=== PATIENT | female | born 1965 | race African-American/Black ===

== ENCOUNTER 2018-06-14 02:24 | Emergency (ER) | payer MEDICAID ==
[~2018-06-14] VITALS: Ht 167.6 cm; Wt 77.0 kg
[2018-06-14] MEDS ORDERED: LORAZEPAM 2MG/ML CPJ IV ONE (03:30)
[2018-06-14 04:19] LABS: BASOPHILS % 0.8 % (0.0-2.0); CHLORIDE 102 mEq/L (98-107); EOSINOPHILS % 2.6 % (0.0-5.0); HEMATOCRIT. 36.4 % (36.0-48.0); HEMOGLOBIN. 11.9 g/dL (12.0-16.0); LYMPHOCYTES % 47.9 % (20.0-50.0); MEAN CORPUSCULAR HEMOGLOBIN 25.3 pg (28.0-32.0); MEAN CORPUSCULAR VOLUME 77.1 fL (81.0-99.0); MEAN PLATELET VOLUME 9.8 fl (7.4-10.4); MONOCYTES % 10.6 % (2.0-8.0); NEUTROPHILS % 38.1 % (40.0-76.0); PLATELET 141 x1000/uL (130-400); RED BLOOD CELL COUNT 4.72 mill/uL (4.2-5.4); RED CELL DISTRIBUTION WIDTH 15.4 % (11.6-14.6)
[2018-06-14 04:22] LABS: ETHANOL BLOOD < 10 mg/dL
[2018-06-14 04:30] LABS: BETA HYDROXYBUTYRATE 0.4 mMol/L (0.0-0.3)
[2018-06-14 04:46] LABS: INR 1.1; PARTIAL THROMBOPLASTIN TIME 22.1 sec (23.4-31.0); PROTHROMBIN TIME 11.4 sec (9.4-11.6)
[2018-06-14 06:48] LABS: *AMPHETAMINES SCREEN URINE NEGATIVE (NEGATIVE); *BARBITURATES SCREEN URINE NEGATIVE (NEGATIVE)
[2018-06-14 06:49] LABS: *BENZODIAZEPINES SCREEN URINE NEGATIVE (NEGATIVE); METHADONE URINE SCREEN NEGATIVE (NEGATIVE); OPIATES URINE SCREEN NEGATIVE (NEGATIVE)
[2018-06-14 06:50] LABS: *COCAINE SCREEN URINE PRESUMTIVE POSITIVE (NEGATIVE); CANNABINOID URINE SCREEN NEGATIVE (NEGATIVE); PHENCYCLIDINE URINE SCREEN NEGATIVE (NEGATIVE)
[2018-06-14 08:29] VITALS: BP 114/83
== END 2018-06-14 08:34 | disposition home or self-care (01) ==
LOC: ER 02:24 → CANBEDREQ 06:55 → ER 08:34
DX: R07.89 Other chest pain (principal); J44.9 Chronic obstructive pulmonary disease, unspecified; F31.9 Bipolar disorder, unspecified; I10 Essential (primary) hypertension; E11.9 Type 2 diabetes mellitus without complications; F17.200 Nicotine dependence, unspecified, uncomplicated; F14.10 Cocaine abuse, uncomplicated
CPT/HCPCS: 36415; 71045; 80053; 80305; 82010; 83880; 84484; 85025; 85610; 85730; 93005; 99285; G0482; Z7610

== ENCOUNTER 2018-06-14 08:58 | Emergency (ER) | payer MEDICAID, OTHER ==
[~2018-06-14] VITALS: Ht 157.5 cm; Wt 86.0 kg
[2018-06-14 09:08] VITALS: BP 110/60
== END 2018-06-14 09:35 | disposition left against medical advice (07) ==
LOC: ER 08:58
DX: R07.89 Other chest pain (principal); Z53.21 Procedure and treatment not carried out due to patient leaving prior to being seen by health care provider
CPT/HCPCS: 93005; Z7610

== ENCOUNTER 2018-07-12 01:17 | Emergency (ER) | payer MEDICAID, OTHER ==
[~2018-07-12] VITALS: Ht 157.5 cm; Wt 86.0 kg
[~2018-07-12 01:17] MED LIST: ALBU18HF2 IH; BECL10.62 IH; GLIP5TAB12 PO; INSU100I13 SQ; INSU100I24 SQ; METF10004 PO; QUET100T PO
[2018-07-12] MEDS ORDERED: ALBUTEROL (0.083%) 2.5MG/3ML NEB HHN STA (01:52)
[2018-07-12] MEDS ORDERED: METHYLPREDNISOLONE SOD SUCC 125 MG/2 ML VIAL IV STA (01:52)
[2018-07-12] MEDS ORDERED: IPRATROPIUM BROMIDE (0.02%) 0.5MG/2.5ML NEB HHN STA (01:52)
[2018-07-12] MEDS ORDERED: MORPHINE SULFATE 4 MG/ML CPJ (NOT FOR IM USE) IV STA (01:52)
[2018-07-12] MEDS ORDERED: ONDANSETRON HCL 4MG/2ML INJ IV STA (01:52)
[2018-07-12] MEDS ORDERED: GUAIFENESIN/CODEINE 200-20MG/10ML UDC PO ONE (02:00)
[2018-07-12 02:35] LABS: BASOPHILS % 1.1 % (0.0-2.0); EOSINOPHILS % 4.1 % (0.0-5.0); HEMATOCRIT. 41.1 % (36.0-48.0); HEMOGLOBIN. 13.9 g/dL (12.0-16.0); LYMPHOCYTES % 49.4 % (20.0-50.0); MEAN CORPUSCULAR HEMOGLOBIN 25.6 pg (28.0-32.0); MEAN CORPUSCULAR VOLUME 75.7 fL (81.0-99.0); MEAN PLATELET VOLUME 9.3 fl (7.4-10.4); MONOCYTES % 8.4 % (2.0-8.0); PLATELET 217 x1000/uL (130-400); RED BLOOD CELL COUNT 5.43 mill/uL (4.2-5.4); RED CELL DISTRIBUTION WIDTH 15.7 % (11.6-14.6)
[2018-07-12 02:42] LABS: CHLORIDE 97 mEq/L (98-107)
[2018-07-12 06:31] VITALS: BP 91/70
== END 2018-07-12 06:41 | disposition home or self-care (01) ==
LOC: ER 01:17
DX: R07.89 Other chest pain (principal); R06.02 Shortness of breath; R05 Cough; J44.9 Chronic obstructive pulmonary disease, unspecified; E11.9 Type 2 diabetes mellitus without complications; I50.9 Heart failure, unspecified; Z87.891 Personal history of nicotine dependence; Z79.4 Long term (current) use of insulin; Z79.899 Other long term (current) drug therapy
CPT/HCPCS: 36415; 71045; 80053; 83880; 84484; 85025; 93005; 94640; 96374; 96375; 99285; J2270; J2405; J2930; J7611; Z7610

== ENCOUNTER 2018-08-29 22:55 | Inpatient (IN) | payer MEDICAID ==
[~2018-08-29] VITALS: Ht 157.5 cm; Wt 97.1 kg
[~2018-08-29 22:55] MED LIST changes: +METF-416 PO; -METF10004 PO
[2018-08-29] MEDS ORDERED: METHYLPREDNISOLONE SOD SUCC 125 MG/2 ML VIAL IV STA (23:43)
[2018-08-29] MEDS ORDERED: SODIUM CHLORIDE 0.9% 1,000 ML IV ONE (23:43)
[2018-08-29] MEDS ORDERED: IPRATROPIUM BROMIDE (0.02%) 0.5MG/2.5ML NEB HHN STA (23:43)
[2018-08-29] MEDS ORDERED: ALBUTEROL (0.083%) 2.5MG/3ML NEB HHN STA (23:43)
[2018-08-29] MEDS ORDERED: ASPIRIN 325MG TABLET PO ONE (23:45)
[2018-08-30] MEDS ORDERED: ALBUTEROL (0.5%) 2.5MG/0.5ML NEB HHN ONE (00:03)
[2018-08-30] MEDS ORDERED: IPRATROPIUM/ALBUTEROL 0.5-3(2.5)MG/3ML NEB ONE (00:04)
[2018-08-30 00:39] LABS: CHLORIDE 97 mEq/L (98-107)
[2018-08-30] MEDS ORDERED: MORPHINE SULFATE 4 MG/ML CPJ (NOT FOR IM USE) IV STA (00:41)
[2018-08-30] MEDS ORDERED: ONDANSETRON HCL 4MG/2ML INJ IV STA (00:41)
[2018-08-30 00:45] LABS: HCG SCREEN NEGATIVE
[2018-08-30] MEDS ORDERED: SODIUM CHLORIDE 0.9% 1,000 ML IV ONE (00:53)
[2018-08-30 00:57] LABS: BASOPHILS % 1.1 % (0.0-2.0); EOSINOPHILS % 3.3 % (0.0-5.0); HEMOGLOBIN. 13.7 g/dL (12.0-16.0); LYMPHOCYTES % 52.1 % (20.0-50.0); MEAN CORPUSCULAR HEMOGLOBIN 25.1 pg (28.0-32.0); MEAN CORPUSCULAR VOLUME 76.7 fL (81.0-99.0); MEAN PLATELET VOLUME 9.3 fl (7.4-10.4); MONOCYTES % 7.7 % (2.0-8.0); NEUTROPHILS % 35.8 % (40.0-76.0); PLATELET 220 x1000/uL (130-400); RED BLOOD CELL COUNT 5.47 mill/uL (4.2-5.4); RED CELL DISTRIBUTION WIDTH 16.2 % (11.6-14.6)
[2018-08-30] MEDS ORDERED: INSULIN REGULAR (HUMULIN R) 300UNITS/3ML SUBCUT ONE ×2 (01:00→05:30)
[2018-08-30 01:16] LABS: INR 1.1; PROTHROMBIN TIME 10.9 sec (9.1-11.1)
[2018-08-30 01:38] LABS: BG BASE EXCESS 2.6 mmol/L (-2.0-2.0); BG CARBOXYHEMOGLOBIN 4.7 % (0.5-1.5); BG DEOXYHEMOGLOBIN 6.2 % (0.0-5.0); BG FRACTION INSPIRED OXYGEN 21; BG HCO3 ACT 27.7 mmol/L (22.0-26.0); BG METHEMOGLOBIN 0.2 % (0.0-1.5); BG OXYGEN SATURATION 93.5 % (92.0-98.5); BG OXYHEMOGLOBIN 88.9 % (94.0-97.0); BG PCO2 44.6 mmHg (35.0-45.0); BG PH 7.411 (7.350-7.450); BG PO2 66.7 mmHg (75.0-100.0); BG SAMPLE SITE RIGHT RADIAL; BG TOTAL HEMOGLOBIN 13.5 g/dL (12.0-18.0); BG VENT MODE ROOM AIR
[2018-08-30 01:59] LABS: *AMPHETAMINES SCREEN URINE NEGATIVE (NEGATIVE); *BARBITURATES SCREEN URINE NEGATIVE (NEGATIVE); *BENZODIAZEPINES SCREEN URINE NEGATIVE (NEGATIVE); *COCAINE SCREEN URINE PRESUMTIVE POSITIVE (NEGATIVE); CANNABINOID URINE SCREEN NEGATIVE (NEGATIVE); METHADONE URINE SCREEN NEGATIVE (NEGATIVE); OPIATES URINE SCREEN NEGATIVE (NEGATIVE); PHENCYCLIDINE URINE SCREEN NEGATIVE (NEGATIVE)
[2018-08-30] MEDS ORDERED: MAGNESIUM/ALUMINUM HYDROXIDE/SIMETHICONE 30ML UDC PO PRN (11:15)
[2018-08-30] MEDS ORDERED: ACETAMINOPHEN 650MG/20.3ML UDC GT PRN (11:15)
[2018-08-30] MEDS ORDERED: CLONIDINE 0.1MG TABLET PO PRN (11:15)
[2018-08-30] MEDS ORDERED: DOCUSATE SODIUM 100MG CAPSULE PO PRN (11:15)
[2018-08-30] MEDS ORDERED: ACETAMINOPHEN 650MG SUPP PR PRN (11:15)
[2018-08-30] MEDS ORDERED: NA PHOS,M-B/NA PHOS,DI-BA ENEMA 118ML PR PRN (11:15)
[2018-08-30] MEDS ORDERED: GUAIFENESIN 200MG/10ML SUGAR FREE UDC PO PRN (11:15)
[2018-08-30] MEDS ORDERED: HYDROCODONE/ACETAMINOPHEN 5/325MG TABLET PO PRN (11:15)
[2018-08-30] MEDS ORDERED: ONDANSETRON HCL 4MG/2ML INJ IV PRN (11:15)
[2018-08-30] MEDS ORDERED: IPRATROPIUM/ALBUTEROL 0.5-3(2.5)MG/3ML NEB INH PRN (11:15)
[2018-08-30] MEDS ORDERED: ACETAMINOPHEN 325MG TABLET PO PRN (11:15)
[2018-08-30] MEDS: HYDROCODONE/ACETAMINOPHEN 10/325MG TABLET PO PRN (12:19)
[2018-08-30] MEDS ORDERED: ALBUTEROL (0.083%) 2.5MG/3ML NEB HHN PRN (12:45)
[2018-08-30] MEDS ORDERED: DEXTROSE 50% WATER 50ML SYRINGE IV PRN (12:45)
[2018-08-30] MEDS ORDERED: BECLOMETHASONE DIPROPIONATE 10.6 GM IH SCH (12:45)
[2018-08-30] MEDS: BLOOD SUGAR DIAGNOSTIC STRIP TEST SCH ×3 (13:00→21:00)
[2018-08-30] MEDS ORDERED: INSULIN REGULAR (HUMULIN R) 300UNITS/3ML SUBCUT SCH (13:00)
[2018-08-30] MEDS: SODIUM CHLORIDE 0.9% INJ 3ML FLUSH IVF SCH ×2 (14:00→22:19)
[2018-08-30 14:04] VITALS: BP 125/76
[2018-08-30] MEDS ORDERED: LIDOCAINE HCL/PF 1% 2ML VIAL ONE (15:02)
[2018-08-30 16:00] VITALS: BP_SYST 112; BP_SYST 135; BP_DIAS 64; BP_DIAS 75
[2018-08-30] MEDS ORDERED: CEFTRIAXONE 1 G PREMIX 50 ML IV NR ×2 (16:00→20:00)
[2018-08-30] MEDS ORDERED: AZITHROMYCIN 500 MG in DEXT 5% WATER 250 ML IV NR (17:00)
[2018-08-30] MEDS: GLIPIZIDE 5MG TABLET PO SCH (17:39)
[2018-08-30] MEDS: METFORMIN HCL 500MG TABLET PO SCH (17:40)
[2018-08-30] MEDS: ENOXAPARIN 30MG/0.3ML SYR SUBCUT SCH (17:40)
[2018-08-30] MEDS: METHYLPREDNISOLONE SOD SUCC 40 MG/ML VIAL IV SCH (17:45)
[2018-08-30] MEDS ORDERED: ALBUTEROL (0.083%) 2.5MG/3ML NEB HHN SCH (18:00)
[2018-08-30] MEDS: INSULIN LISPRO 100 UNITS/ML SUBCUT SCH ×2 (18:29→21:00)
[2018-08-30 20:00] VITALS: BP 121/60
[2018-08-30 20:10] LABS: CREATINE KINASE 53 IU/L (26-192); CREATINE KINASE MB FRACTION < 1.0 ng/mL (0.5-3.6); HDL CHOLESTEROL 69 mg/dL (40-59); LDL CHOLESTEROL 128 mg/dL (5-100); T4 FREE 0.93 ng/dL (0.76-1.46)
[2018-08-30] MEDS: QUETIAPINE FUMARATE 100MG TABLET PO SCH (22:16)
[2018-08-31] VITALS: BP 116/59
[2018-08-31] MEDS: IPRATROPIUM/ALBUTEROL 0.5-3(2.5)MG/3ML NEB INH SCH ×3 (01:48→20:48)
[2018-08-31 04:00] VITALS: BP 126/60
[2018-08-31] MEDS: ENOXAPARIN 30MG/0.3ML SYR SUBCUT SCH ×2 (04:16→15:11)
[2018-08-31] MEDS: METHYLPREDNISOLONE SOD SUCC 40 MG/ML VIAL IV SCH ×2 (04:16→15:00)
[2018-08-31] MEDS: METFORMIN HCL 500MG TABLET PO SCH ×2 (06:26→17:43)
[2018-08-31] MEDS: BLOOD SUGAR DIAGNOSTIC STRIP TEST SCH ×4 (06:27→21:28)
[2018-08-31] MEDS: SODIUM CHLORIDE 0.9% INJ 3ML FLUSH IVF SCH ×3 (06:27→21:30)
[2018-08-31 06:41] LABS: BASOPHILS % 0.6 % (0.0-2.0); EOSINOPHILS % 1.4 % (0.0-5.0); HEMATOCRIT. 37.4 % (36.0-48.0); HEMOGLOBIN. 12.4 g/dL (12.0-16.0); LYMPHOCYTES % 41.4 % (20.0-50.0); MEAN CORPUSCULAR HEMOGLOBIN 25.4 pg (28.0-32.0); MEAN CORPUSCULAR VOLUME 76.8 fL (81.0-99.0); MONOCYTES % 4.3 % (2.0-8.0); NEUTROPHILS % 52.3 % (40.0-76.0); PLATELET 183 x1000/uL (130-400); RED BLOOD CELL COUNT 4.87 mill/uL (4.2-5.4); RED CELL DISTRIBUTION WIDTH 16.3 % (11.6-14.6)
[2018-08-31 06:49] LABS: CHLORIDE 104 mEq/L (98-107)
[2018-08-31 06:57] LABS: CREATINE KINASE 47 IU/L (26-192); CREATINE KINASE MB FRACTION 1.2 ng/mL (0.5-3.6); HDL CHOLESTEROL 67 mg/dL (40-59); LDL CHOLESTEROL 128 mg/dL (5-100)
[2018-08-31 08:06] VITALS: BP 107/58
[2018-08-31] MEDS: GLIPIZIDE 5MG TABLET PO SCH (08:24)
[2018-08-31] MEDS: INSULIN LISPRO 100 UNITS/ML SUBCUT SCH ×4 (08:26→21:40)
[2018-08-31] MEDS: NICOTINE 14MG PATCH TD SCH (10:07)
[2018-08-31 12:24] VITALS: BP 98/66
[2018-08-31] MEDS: HYDROCODONE/ACETAMINOPHEN 10/325MG TABLET PO PRN (13:51)
[2018-08-31 14:23] LABS: CLARITY URINE CLEAR (CLEAR); COLOR URINE YELLOW (YELLOW); KETONES URINE NEGATIVE (NEGATIVE); LEUKOCYTE ESTERASE URINE NEGATIVE (NEGATIVE); NITRITE URINE NEGATIVE (NEGATIVE); OCCULT BLOOD URINE NEGATIVE (NEGATIVE); PH URINE 5.5 (4.5-8.0); PROTEIN URINE NEGATIVE (NEGATIVE); SPECIFIC GRAVITY URINE 1.025 (1.005-1.030)
[2018-08-31] MEDS: BUDESONIDE 0.5MG/2ML NEB HHN SCH (14:25)
[2018-08-31 14:41] LABS: *BENZODIAZEPINES SCREEN URINE NEGATIVE (NEGATIVE); *COCAINE SCREEN URINE PRESUMTIVE POSITIVE (NEGATIVE); METHADONE URINE SCREEN NEGATIVE (NEGATIVE); OPIATES URINE SCREEN NEGATIVE (NEGATIVE)
[2018-08-31 14:43] LABS: *AMPHETAMINES SCREEN URINE NEGATIVE (NEGATIVE); *BARBITURATES SCREEN URINE NEGATIVE (NEGATIVE); CANNABINOID URINE SCREEN NEGATIVE (NEGATIVE); PHENCYCLIDINE URINE SCREEN NEGATIVE (NEGATIVE)
[2018-08-31] MEDS ORDERED: INFLUENZA VIRUS VACCINE(AFLURIA) 0.5ML SYR IM ONE (15:15)
[2018-08-31 15:24] VITALS: BP 108/61
[2018-08-31 20:00] VITALS: BP 118/72
[2018-08-31] MEDS ORDERED: CEFTRIAXONE 1 G PREMIX 50 ML IV SCH (20:00)
[2018-08-31] MEDS: QUETIAPINE FUMARATE 100MG TABLET PO SCH (21:28)
[2018-09-01] VITALS: BP 97/54
[2018-09-01] MEDS: ENOXAPARIN 30MG/0.3ML SYR SUBCUT SCH ×2 (01:56→15:00)
[2018-09-01 03:59] VITALS: BP 99/54
[2018-09-01] MEDS: SODIUM CHLORIDE 0.9% INJ 3ML FLUSH IVF SCH ×2 (06:00→14:00)
[2018-09-01] MEDS: METFORMIN HCL 500MG TABLET PO SCH (07:02)
[2018-09-01] MEDS: BLOOD SUGAR DIAGNOSTIC STRIP TEST SCH ×2 (07:03→11:48)
[2018-09-01] MEDS: HYDROCODONE/ACETAMINOPHEN 10/325MG TABLET PO PRN (07:14)
[2018-09-01] MEDS: IPRATROPIUM/ALBUTEROL 0.5-3(2.5)MG/3ML NEB INH SCH ×2 (07:59→14:00)
[2018-09-01] MEDS: BUDESONIDE 0.5MG/2ML NEB HHN SCH (07:59)
[2018-09-01 08:00] VITALS: BP 112/68
[2018-09-01] MEDS: INSULIN LISPRO 100 UNITS/ML SUBCUT SCH ×2 (08:14→13:17)
[2018-09-01] MEDS: NICOTINE 14MG PATCH TD SCH (08:15)
[2018-09-01] MEDS: GLIPIZIDE 5MG TABLET PO SCH (08:16)
[2018-09-01] MEDS ORDERED: METHYLPREDNISOLONE SOD SUCC 40 MG/ML VIAL IV SCH (09:00)
[2018-09-01 14:23] VITALS: BP 110/72
== END 2018-09-01 16:19 | disposition home or self-care (01) | DRG 816 ==
LOC: ER 23:28 → 6WST 08-30 01:05 → EDBEDREQ 08-30 01:07 → EDBEDREQTM 08-30 01:07 → EDBEDREQDT 08-30 01:07 → ENRESERV 08-30 08:00
PROVIDERS: ADMIT Family Medicine; ATTEND Family Medicine
DX: T40.5X1A Poisoning by cocaine, accidental (unintentional), initial encounter (principal); J96.01 Acute respiratory failure with hypoxia; J68.0 Bronchitis and pneumonitis due to chemicals, gases, fumes and vapors; Z99.81 Dependence on supplemental oxygen; J18.9 Pneumonia, unspecified organism; E11.65 Type 2 diabetes mellitus with hyperglycemia; E44.1 Mild protein-calorie malnutrition; E66.9 Obesity, unspecified; J44.1 Chronic obstructive pulmonary disease with (acute) exacerbation; F99 Mental disorder, not otherwise specified; E78.5 Hyperlipidemia, unspecified; F17.210 Nicotine dependence, cigarettes, uncomplicated; F14.10 Cocaine abuse, uncomplicated; Z60.2 Problems related to living alone; Y92.89 Other specified places as the place of occurrence of the external cause; Z59.0 Homelessness; Z68.39 Body mass index [BMI] 39.0-39.9, adult; Z79.899 Other long term (current) drug therapy; Z79.4 Long term (current) use of insulin; Z71.51 Drug abuse counseling and surveillance of drug abuser; R07.89 Other chest pain
CPT/HCPCS: 36415; 36600; 71045; 80061; 80305; 82010; 82375; 82550; 82553; 82805; 82962; 83036; 83880; 84439; 84443; 84484; 84703; 85379; 90686; 93005; 93306; 94640; 96361; 96372; 96374; 96375; 99285; 99406; J0456; J0696; J1650; J1815; J2270; J2405; J2920; J2930; J3490; J7030; J7050; J7060; J7611; J7620; J7626

== ENCOUNTER 2018-09-26 02:34 | Inpatient (IN) | payer MEDICAID ==
[~2018-09-26] VITALS: Ht 157.5 cm; Wt 97.1 kg
[2018-09-26] MEDS ORDERED: IPRATROPIUM BROMIDE (0.02%) 0.5MG/2.5ML NEB HHN STA (02:56)
[2018-09-26] MEDS ORDERED: MAGNESIUM 2 G PREMIX 50 ML IV STA (02:56)
[2018-09-26] MEDS ORDERED: ALBUTEROL (0.083%) 2.5MG/3ML NEB HHN STA (02:56)
[2018-09-26] MEDS ORDERED: METHYLPREDNISOLONE SOD SUCC 125 MG/2 ML VIAL IV STA (02:56)
[2018-09-26 03:21] LABS: BASOPHILS % 0.2 % (0.0-2.0); EOSINOPHILS % 2.9 % (0.0-5.0); HEMATOCRIT. 41.1 % (36.0-48.0); HEMOGLOBIN. 13.6 g/dL (12.0-16.0); LYMPHOCYTES % 39.7 % (20.0-50.0); MEAN CORPUSCULAR HEMOGLOBIN 25.6 pg (28.0-32.0); MEAN CORPUSCULAR VOLUME 77.4 fL (81.0-99.0); MEAN PLATELET VOLUME 8.6 fl (7.4-10.4); MONOCYTES % 11.6 % (2.0-8.0); NEUTROPHILS % 45.6 % (40.0-76.0); PLATELET 234 x1000/uL (130-400); RED BLOOD CELL COUNT 5.31 mill/uL (4.2-5.4); RED CELL DISTRIBUTION WIDTH 16.3 % (11.6-14.6)
[2018-09-26 03:23] LABS: CHLORIDE 100 mEq/L (98-107)
[2018-09-26] MEDS ORDERED: INSULIN LISPRO 100 UNITS/ML SUBCUT ONE (08:44)
[2018-09-26 09:00] VITALS: BP 120/70
[2018-09-26] MEDS ORDERED: GUAIFENESIN 200MG/10ML SUGAR FREE UDC PO PRN (09:00)
[2018-09-26] MEDS ORDERED: HYDROCODONE/ACETAMINOPHEN 5/325MG TABLET PO PRN (09:00)
[2018-09-26] MEDS ORDERED: DOCUSATE SODIUM 100MG CAPSULE PO PRN (09:00)
[2018-09-26] MEDS ORDERED: MAGNESIUM/ALUMINUM HYDROXIDE/SIMETHICONE 30ML UDC PO PRN (09:00)
[2018-09-26] MEDS ORDERED: CLONIDINE 0.1MG TABLET PO PRN (09:00)
[2018-09-26] MEDS ORDERED: ACETAMINOPHEN 325MG TABLET PO PRN (09:00)
[2018-09-26 09:18] VITALS: BP 120/70
[2018-09-26] MEDS: AZITHROMYCIN 500 MG TABLET PO SCH (09:28)
[2018-09-26] MEDS: PANTOPRAZOLE 40MG DR TABLET PO SCH ×2 (09:28→21:34)
[2018-09-26] MEDS: ENOXAPARIN 40MG/0.4ML SYR SUBCUT SCH (09:30)
[2018-09-26 10:16] LABS: BG BASE EXCESS -2.3 mmol/L (-2.0-2.0); BG CARBOXYHEMOGLOBIN 2.3 % (0.5-1.5); BG FRACTION INSPIRED OXYGEN 21; BG HCO3 ACT 22.8 mmol/L (22.0-26.0); BG METHEMOGLOBIN 0.3 % (0.0-1.5); BG OXYGEN SATURATION 93.8 % (92.0-98.5); BG OXYHEMOGLOBIN 91.4 % (94.0-97.0); BG PCO2 40.3 mmHg (35.0-45.0); BG PO2 73.4 mmHg (75.0-100.0); BG SAMPLE SITE RIGHT RADIAL; BG TOTAL HEMOGLOBIN 13.3 g/dL (12.0-18.0); BG VENT MODE ROOM AIR
[2018-09-26] MEDS ORDERED: DEXTROSE 50% WATER 50ML SYRINGE IV PRN (10:30)
[2018-09-26] MEDS: INSULIN LISPRO 100 UNITS/ML SUBCUT SCH ×6 (10:55→21:52)
[2018-09-26 11:04] LABS: CHLORIDE 99 mEq/L (98-107)
[2018-09-26 12:00] VITALS: BP 133/72
[2018-09-26] MEDS: IPRATROPIUM/ALBUTEROL 0.5-3(2.5)MG/3ML NEB INH PRN ×2 (12:29→15:26)
[2018-09-26] MEDS: BUDESONIDE 0.5MG/2ML NEB HHN SCH ×2 (12:29→20:58)
[2018-09-26] MEDS ORDERED: INSULIN LISPRO 100 UNITS/ML SUBCUT SCH (12:50)
[2018-09-26] MEDS: BLOOD SUGAR DIAGNOSTIC STRIP TEST SCH ×3 (13:02→21:41)
[2018-09-26] MEDS ORDERED: LIDOCAINE HCL/PF 1% 2ML VIAL ONE (14:51)
[2018-09-26] MEDS: METHYLPREDNISOLONE SOD SUCC 40 MG/ML VIAL IV SCH ×2 (14:52→21:34)
[2018-09-26 16:00] VITALS: BP 113/74
[2018-09-26 16:33] LABS: CREATINE KINASE 87 IU/L (26-192)
[2018-09-26 16:34] LABS: CREATINE KINASE MB FRACTION < 1.0 ng/mL (0.5-3.6)
[2018-09-26 20:25] VITALS: BP 119/73
[2018-09-26] MEDS: IPRATROPIUM/ALBUTEROL 0.5-3(2.5)MG/3ML NEB HHN SCH (20:58)
[2018-09-26] MEDS: MONTELUKAST SODIUM 10MG TABLET PO SCH (21:34)
[2018-09-26] MEDS: ONDANSETRON HCL 4MG/2ML INJ IV PRN (21:51)
[2018-09-26] MEDS ORDERED: INSULIN GLARGINE UD 100 UNITS/ML SYR SUBCUT SCH (22:00)
[2018-09-26 23:48] LABS: CREATINE KINASE 91 IU/L (26-192)
[2018-09-26 23:49] LABS: CREATINE KINASE MB FRACTION < 1.0 ng/mL (0.5-3.6)
[2018-09-27] VITALS (7 sets, daily range): BP systolic 103–129; BP diastolic 65–82
[2018-09-27] MEDS: IPRATROPIUM/ALBUTEROL 0.5-3(2.5)MG/3ML NEB INH PRN (01:58)
[2018-09-27] MEDS: NYSTATIN 100,000 UNITS/GM OINT 15GM TOP SCH ×3 (03:24→21:33)
[2018-09-27] MEDS: MORPHINE SULFATE 4 MG/ML CPJ (NOT FOR IM USE) IV PRN ×5 (03:24→22:21)
[2018-09-27] MEDS: BLOOD SUGAR DIAGNOSTIC STRIP TEST SCH ×4 (06:19→21:22)
[2018-09-27] MEDS: PANTOPRAZOLE 40MG DR TABLET PO SCH (06:19)
[2018-09-27] MEDS: METHYLPREDNISOLONE SOD SUCC 40 MG/ML VIAL IV SCH ×3 (06:19→21:22)
[2018-09-27 07:21] LABS: BASOPHILS % 0.3 % (0.0-2.0); HEMATOCRIT. 35.6 % (36.0-48.0); HEMOGLOBIN. 11.9 g/dL (12.0-16.0); LYMPHOCYTES % 16.6 % (20.0-50.0); MEAN CORPUSCULAR HEMOGLOBIN 25.6 pg (28.0-32.0); MEAN CORPUSCULAR VOLUME 76.7 fL (81.0-99.0); MEAN PLATELET VOLUME 8.8 fl (7.4-10.4); MONOCYTES % 4.6 % (2.0-8.0); NEUTROPHILS % 78.5 % (40.0-76.0); PLATELET 226 x1000/uL (130-400); RED BLOOD CELL COUNT 4.64 mill/uL (4.2-5.4); RED CELL DISTRIBUTION WIDTH 16.5 % (11.6-14.6)
[2018-09-27] MEDS: INSULIN LISPRO 100 UNITS/ML SUBCUT SCH ×7 (07:50→21:31)
[2018-09-27] MEDS: AZITHROMYCIN 500 MG TABLET PO SCH (08:28)
[2018-09-27] MEDS: ENOXAPARIN 40MG/0.4ML SYR SUBCUT SCH (08:29)
[2018-09-27] MEDS: IPRATROPIUM/ALBUTEROL 0.5-3(2.5)MG/3ML NEB HHN SCH ×3 (10:07→20:02)
[2018-09-27] MEDS: BUDESONIDE 0.5MG/2ML NEB HHN SCH ×2 (10:07→20:02)
[2018-09-27 18:42] LABS: *AMPHETAMINES SCREEN URINE NEGATIVE (NEGATIVE); *BARBITURATES SCREEN URINE NEGATIVE (NEGATIVE); *BENZODIAZEPINES SCREEN URINE NEGATIVE (NEGATIVE); *COCAINE SCREEN URINE PRESUMTIVE POSITIVE (NEGATIVE); METHADONE URINE SCREEN NEGATIVE (NEGATIVE); OPIATES URINE SCREEN PRESUMTIVE POSITIVE (NEGATIVE)
[2018-09-27 18:43] LABS: CANNABINOID URINE SCREEN NEGATIVE (NEGATIVE); PHENCYCLIDINE URINE SCREEN NEGATIVE (NEGATIVE)
[2018-09-27] MEDS: ATORVASTATIN CALCIUM 40MG TABLET PO SCH (21:22)
[2018-09-27] MEDS: MONTELUKAST SODIUM 10MG TABLET PO SCH (21:22)
[2018-09-27] MEDS: FAMOTIDINE 20MG TABLET PO SCH (21:22)
[2018-09-27] MEDS: INSULIN GLARGINE UD 100 UNITS/ML SYR SUBCUT SCH (21:30)
[2018-09-27] MEDS: ONDANSETRON HCL 4MG/2ML INJ IV PRN (22:21)
[2018-09-28 00:06] VITALS: BP 107/70
[2018-09-28] MEDS: IPRATROPIUM/ALBUTEROL 0.5-3(2.5)MG/3ML NEB HHN SCH ×4 (01:05→22:26)
[2018-09-28] MEDS: MORPHINE SULFATE 4 MG/ML CPJ (NOT FOR IM USE) IV PRN ×5 (02:41→20:09)
[2018-09-28 04:00] VITALS: BP 132/88
[2018-09-28] MEDS: METHYLPREDNISOLONE SOD SUCC 40 MG/ML VIAL IV SCH ×2 (06:37→12:45)
[2018-09-28] MEDS: GLIPIZIDE 10MG TABLET PO SCH (06:37)
[2018-09-28] MEDS: BLOOD SUGAR DIAGNOSTIC STRIP TEST SCH ×4 (06:37→20:18)
[2018-09-28] MEDS: INSULIN LISPRO 100 UNITS/ML SUBCUT SCH ×7 (06:50→20:23)
[2018-09-28 07:35] LABS: BASOPHILS % 0.3 % (0.0-2.0); HEMATOCRIT. 36.6 % (36.0-48.0); HEMOGLOBIN. 12.1 g/dL (12.0-16.0); MEAN CORPUSCULAR HEMOGLOBIN 25.3 pg (28.0-32.0); MEAN CORPUSCULAR VOLUME 76.5 fL (81.0-99.0); MEAN PLATELET VOLUME 8.8 fl (7.4-10.4); MONOCYTES % 5.1 % (2.0-8.0); NEUTROPHILS % 66.6 % (40.0-76.0); PLATELET 223 x1000/uL (130-400); RED BLOOD CELL COUNT 4.79 mill/uL (4.2-5.4); RED CELL DISTRIBUTION WIDTH 16.8 % (11.6-14.6)
[2018-09-28] MEDS: BUDESONIDE 0.5MG/2ML NEB HHN SCH ×2 (07:40→22:26)
[2018-09-28 08:00] VITALS: BP 110/71
[2018-09-28 08:00] LABS: CHLORIDE 97 mEq/L (98-107)
[2018-09-28] MEDS: AZITHROMYCIN 500 MG TABLET PO SCH (08:06)
[2018-09-28] MEDS: ENOXAPARIN 40MG/0.4ML SYR SUBCUT SCH (08:06)
[2018-09-28] MEDS: FAMOTIDINE 20MG TABLET PO SCH ×2 (08:06→20:09)
[2018-09-28] MEDS: NYSTATIN 100,000 UNITS/GM OINT 15GM TOP SCH ×2 (09:34→20:25)
[2018-09-28] MEDS: INSULIN GLARGINE UD 100 UNITS/ML SYR SUBCUT SCH ×2 (10:11→21:26)
[2018-09-28 12:06] VITALS: BP 102/59
[2018-09-28] MEDS ORDERED: GUAIFENESIN 200MG/10ML SUGAR FREE UDC PO PRN (12:30)
[2018-09-28] MEDS ORDERED: GUAIFENESIN/CODEINE 100-10MG/5ML UDC PO PRN (14:15)
[2018-09-28 16:00] VITALS: BP 120/75
[2018-09-28 20:00] VITALS: BP 117/57
[2018-09-28] MEDS: ATORVASTATIN CALCIUM 40MG TABLET PO SCH (20:09)
[2018-09-28] MEDS: MONTELUKAST SODIUM 10MG TABLET PO SCH (20:09)
[2018-09-29] VITALS: BP 123/66
[2018-09-29] MEDS: MORPHINE SULFATE 4 MG/ML CPJ (NOT FOR IM USE) IV PRN ×3 (00:16→13:17)
[2018-09-29] MEDS: IPRATROPIUM/ALBUTEROL 0.5-3(2.5)MG/3ML NEB HHN SCH ×3 (03:02→13:44)
[2018-09-29 04:00] VITALS: BP 116/69
[2018-09-29] MEDS: BLOOD SUGAR DIAGNOSTIC STRIP TEST SCH ×3 (06:23→17:20)
[2018-09-29] MEDS: GLIPIZIDE 10MG TABLET PO SCH (06:25)
[2018-09-29 07:36] LABS: CHLORIDE 99 mEq/L (98-107)
[2018-09-29 07:59] LABS: BASOPHILS % 0.4 % (0.0-2.0); EOSINOPHILS % 0.1 % (0.0-5.0); HEMATOCRIT. 39.5 % (36.0-48.0); HEMOGLOBIN. 12.8 g/dL (12.0-16.0); LYMPHOCYTES % 43.3 % (20.0-50.0); MEAN CORPUSCULAR VOLUME 77.1 fL (81.0-99.0); MEAN PLATELET VOLUME 9.1 fl (7.4-10.4); MONOCYTES % 6.2 % (2.0-8.0); PLATELET 206 x1000/uL (130-400); RED BLOOD CELL COUNT 5.13 mill/uL (4.2-5.4); RED CELL DISTRIBUTION WIDTH 16.4 % (11.6-14.6)
[2018-09-29] MEDS: BUDESONIDE 0.5MG/2ML NEB HHN SCH (08:56)
[2018-09-29 08:57] VITALS: BP 114/69
[2018-09-29] MEDS: NYSTATIN 100,000 UNITS/GM OINT 15GM TOP SCH (09:00)
[2018-09-29] MEDS ORDERED: PREDNISONE 20MG TABLET PO SCH (09:00)
[2018-09-29] MEDS: INSULIN LISPRO 100 UNITS/ML SUBCUT SCH ×6 (09:18→17:39)
[2018-09-29] MEDS: FAMOTIDINE 20MG TABLET PO SCH (10:04)
[2018-09-29] MEDS: AZITHROMYCIN 500 MG TABLET PO SCH (10:04)
[2018-09-29] MEDS: ENOXAPARIN 40MG/0.4ML SYR SUBCUT SCH (10:04)
[2018-09-29] MEDS: INSULIN GLARGINE UD 100 UNITS/ML SYR SUBCUT SCH (10:09)
[2018-09-29 12:49] VITALS: BP 109/67
[2018-09-29] MEDS ORDERED: INSLIS SUBCUT (15:21)
[2018-09-29] MEDS ORDERED: LANTUSUD SUBCUT (15:21)
[2018-09-29] MEDS ORDERED: LIP40 PO (15:21)
[2018-09-29] MEDS ORDERED: MONT10TA21 PO (15:21)
[2018-09-29] MEDS ORDERED: TUSSL MT (16:11)
[2018-09-29 16:33] VITALS: BP 114/70
[2018-09-29 16:55] VITALS: BP 114/70
[2018-09-29] MEDS ORDERED: INSULIN GLARGINE UD 100 UNITS/ML SYR SUBCUT SCH (22:00)
== END 2018-09-29 18:30 | disposition home or self-care (01) | DRG 816 ==
LOC: ER 02:34 → 6WST 06:31 → ENRESERVDT 08:10 → ENRESERVTM 08:10
PROVIDERS: ADMIT Internal Medicine; ATTEND Internal Medicine
DX: T40.5X1A Poisoning by cocaine, accidental (unintentional), initial encounter (principal); J96.00 Acute respiratory failure, unspecified whether with hypoxia or hypercapnia; J68.0 Bronchitis and pneumonitis due to chemicals, gases, fumes and vapors; E11.65 Type 2 diabetes mellitus with hyperglycemia; M94.0 Chondrocostal junction syndrome [Tietze]; E66.8 Other obesity; I10 Essential (primary) hypertension; E78.5 Hyperlipidemia, unspecified; F14.10 Cocaine abuse, uncomplicated; F17.210 Nicotine dependence, cigarettes, uncomplicated; Z79.4 Long term (current) use of insulin; Z79.84 Long term (current) use of oral hypoglycemic drugs; Y92.89 Other specified places as the place of occurrence of the external cause; Z68.39 Body mass index [BMI] 39.0-39.9, adult
CPT/HCPCS: 36415; 36600; 71045; 80048; 80061; 80305; 82375; 82550; 82553; 82805; 82962; 83036; 83735; 84484; 85379; 93005; 93306; 93970; 94640; 94644; 96365; 96366; 96375; 99285; C1893; J1650; J1815; J2270; J2405; J2920; J2930; J3475; J3490; J7512; J7611; J7620; J7626

== ENCOUNTER 2018-10-02 00:25 | Emergency (ER) | payer MEDICAID ==
[~2018-10-02] VITALS: Ht 157.5 cm; Wt 98.0 kg
[~2018-10-02 00:25] MED LIST changes: -GLIP5TAB12 PO; +INSLIS SUBCUT; -INSU100I13 SQ; -INSU100I24 SQ; +LANTUSUD SUBCUT; +LIP40 PO; +MONT10TA21 PO; +TUSSL MT
[2018-10-02] MEDS ORDERED: GUAIFENESIN/CODEINE 200-20MG/10ML UDC PO ONE (02:30)
[2018-10-02] MEDS ORDERED: KETOROLAC 30MG/ML VIAL IV ONE (02:30)
[2018-10-02 05:18] VITALS: BP 96/61
== END 2018-10-02 05:48 | disposition home or self-care (01) ==
LOC: ER 00:25
DX: J44.1 Chronic obstructive pulmonary disease with (acute) exacerbation (principal); E11.9 Type 2 diabetes mellitus without complications; F17.200 Nicotine dependence, unspecified, uncomplicated; Z79.4 Long term (current) use of insulin
CPT/HCPCS: 71045; 93005; 96374; 99283; J1885

== ENCOUNTER 2018-10-14 19:12 | Inpatient (IN) | payer MEDICAID ==
[~2018-10-14] VITALS: Ht 157.5 cm; Wt 98.0 kg
[2018-10-14] MEDS ORDERED: ONDANSETRON HCL 4MG/2ML INJ IV STA (19:51)
[2018-10-14] MEDS ORDERED: METHYLPREDNISOLONE SOD SUCC 125 MG/2 ML VIAL IV STA (19:51)
[2018-10-14] MEDS ORDERED: IPRATROPIUM BROMIDE (0.02%) 0.5MG/2.5ML NEB HHN STA (19:51)
[2018-10-14] MEDS ORDERED: MAGNESIUM 2 G PREMIX 50 ML IV ONE (20:00)
[2018-10-14 20:33] LABS: BASOPHILS % 1.1 % (0.0-2.0); EOSINOPHILS % 6.1 % (0.0-5.0); HEMATOCRIT. 41.6 % (36.0-48.0); HEMOGLOBIN. 13.8 g/dL (12.0-16.0); LYMPHOCYTES % 31.5 % (20.0-50.0); MEAN CORPUSCULAR HEMOGLOBIN 25.6 pg (28.0-32.0); MEAN CORPUSCULAR VOLUME 77.2 fL (81.0-99.0); MEAN PLATELET VOLUME 9.3 fl (7.4-10.4); MONOCYTES % 6.7 % (2.0-8.0); NEUTROPHILS % 54.6 % (40.0-76.0); PLATELET 161 x1000/uL (130-400); RED BLOOD CELL COUNT 5.39 mill/uL (4.2-5.4); RED CELL DISTRIBUTION WIDTH 16.7 % (11.6-14.6)
[2018-10-14 20:39] LABS: CHLORIDE 96 mEq/L (98-107)
[2018-10-14] MEDS: ALBUTEROL (0.083%) 2.5MG/3ML NEB HHN SCH (21:15)
[2018-10-15] MEDS ORDERED: S350 MT (09:37)
[2018-10-15 09:44] VITALS: BP 136/75
[2018-10-15] MEDS ORDERED: CARISOPRODOL 350 MG TABLET PO PRN (10:15)
[2018-10-15] MEDS ORDERED: DEXTROSE 50% WATER 50ML SYRINGE IV PRN (10:15)
[2018-10-15 12:22] VITALS: BP 139/85
[2018-10-15] MEDS ORDERED: INSULIN LISPRO 100 UNITS/ML SUBCUT SCH (12:40)
[2018-10-15] MEDS: BLOOD SUGAR DIAGNOSTIC STRIP TEST SCH ×3 (12:40→20:16)
[2018-10-15] MEDS: BUDESONIDE 0.5MG/2ML NEB HHN SCH ×2 (12:44→20:41)
[2018-10-15] MEDS: IPRATROPIUM/ALBUTEROL 0.5-3(2.5)MG/3ML NEB HHN SCH ×3 (12:45→20:41)
[2018-10-15] MEDS: INSULIN LISPRO 100 UNITS/ML SUBCUT SCH ×3 (12:51→20:59)
[2018-10-15 16:22] VITALS: BP 111/69
[2018-10-15] MEDS: MONTELUKAST SODIUM 10MG TABLET PO SCH (17:09)
[2018-10-15] MEDS: METHYLPREDNISOLONE SOD SUCC 40 MG/ML VIAL IV SCH (17:09)
[2018-10-15] MEDS: GLIPIZIDE 10MG TABLET PO SCH (17:09)
[2018-10-15] MEDS ORDERED: HYDROCODONE/ACETAMINOPHEN 10/325MG TABLET PO PRN (17:15)
[2018-10-15] MEDS ORDERED: MORPHINE SULFATE 2 MG/ML CPJ (NOT FOR IM USE) IV PRN (18:45)
[2018-10-15 20:28] VITALS: BP 109/73
[2018-10-15] MEDS: QUETIAPINE FUMARATE 100MG TABLET PO SCH (20:50)
[2018-10-15] MEDS: MORPHINE SULFATE 10MG/5ML ORAL SOLN UDC PO PRN (21:19)
[2018-10-15] MEDS: INSULIN GLARGINE UD 100 UNITS/ML SYR SUBCUT SCH (21:21)
[2018-10-15] MEDS ORDERED: INSULIN GLARGINE UD 100 UNITS/ML SYR SUBCUT SCH ×2 (22:00)
[2018-10-16] VITALS: BP 121/78
[2018-10-16] MEDS: METHYLPREDNISOLONE SOD SUCC 40 MG/ML VIAL IV SCH ×2 (00:35→08:34)
[2018-10-16] MEDS: IPRATROPIUM/ALBUTEROL 0.5-3(2.5)MG/3ML NEB HHN SCH ×6 (00:38→21:26)
[2018-10-16 04:00] VITALS: BP 109/71
[2018-10-16] MEDS: BLOOD SUGAR DIAGNOSTIC STRIP TEST SCH ×4 (05:48→20:32)
[2018-10-16] MEDS: INSULIN LISPRO 100 UNITS/ML SUBCUT SCH ×6 (05:59→20:45)
[2018-10-16 07:47] LABS: BASOPHILS % 0.3 % (0.0-2.0); EOSINOPHILS % 0.1 % (0.0-5.0); HEMATOCRIT. 36.3 % (36.0-48.0); HEMOGLOBIN. 11.8 g/dL (12.0-16.0); LYMPHOCYTES % 15.1 % (20.0-50.0); MEAN CORPUSCULAR HEMOGLOBIN 25.2 pg (28.0-32.0); MEAN CORPUSCULAR VOLUME 77.6 fL (81.0-99.0); MEAN PLATELET VOLUME 9.4 fl (7.4-10.4); MONOCYTES % 1.9 % (2.0-8.0); NEUTROPHILS % 82.6 % (40.0-76.0); PLATELET 138 x1000/uL (130-400); RED BLOOD CELL COUNT 4.68 mill/uL (4.2-5.4); RED CELL DISTRIBUTION WIDTH 16.5 % (11.6-14.6)
[2018-10-16 08:00] VITALS: BP 105/64
[2018-10-16 08:34] LABS: CLARITY URINE CLOUDY (CLEAR); COLOR URINE YELLOW (YELLOW); KETONES URINE NEGATIVE (NEGATIVE); LEUKOCYTE ESTERASE URINE NEGATIVE (NEGATIVE); NITRITE URINE NEGATIVE (NEGATIVE); OCCULT BLOOD URINE NEGATIVE (NEGATIVE); PH URINE 5.5 (4.5-8.0); PROTEIN URINE NEGATIVE (NEGATIVE); SPECIFIC GRAVITY URINE 1.016 (1.005-1.030); UROBILINOGEN URINE 0.2 E.U./dL (0.2-1.0)
[2018-10-16] MEDS: GLIPIZIDE 10MG TABLET PO SCH ×2 (08:34→17:30)
[2018-10-16] MEDS: METFORMIN HCL 500MG TABLET PO SCH ×2 (08:34→17:31)
[2018-10-16] MEDS: MORPHINE SULFATE 10MG/5ML ORAL SOLN UDC PO PRN ×3 (08:47→21:34)
[2018-10-16 08:51] LABS: *BARBITURATES SCREEN URINE NEGATIVE (NEGATIVE)
[2018-10-16 08:52] LABS: *AMPHETAMINES SCREEN URINE NEGATIVE (NEGATIVE); *BENZODIAZEPINES SCREEN URINE NEGATIVE (NEGATIVE); *COCAINE SCREEN URINE PRESUMTIVE POSITIVE (NEGATIVE)
[2018-10-16 08:53] LABS: CANNABINOID URINE SCREEN NEGATIVE (NEGATIVE); METHADONE URINE SCREEN NEGATIVE (NEGATIVE); OPIATES URINE SCREEN PRESUMTIVE POSITIVE (NEGATIVE); PHENCYCLIDINE URINE SCREEN NEGATIVE (NEGATIVE)
[2018-10-16 09:49] LABS: CHLORIDE 98 mEq/L (98-107)
[2018-10-16] MEDS: INSULIN GLARGINE UD 100 UNITS/ML SYR SUBCUT SCH ×2 (11:09→20:45)
[2018-10-16 12:00] VITALS: BP 138/84
[2018-10-16 16:00] VITALS: BP 116/59
[2018-10-16] MEDS: MONTELUKAST SODIUM 10MG TABLET PO SCH (17:30)
[2018-10-16 20:00] VITALS: BP 115/64
[2018-10-16] MEDS: QUETIAPINE FUMARATE 100MG TABLET PO SCH (20:41)
[2018-10-16] MEDS: BUDESONIDE 0.5MG/2ML NEB HHN SCH (21:28)
[2018-10-17] VITALS: BP 111/64
[2018-10-17] MEDS: IPRATROPIUM/ALBUTEROL 0.5-3(2.5)MG/3ML NEB HHN SCH ×6 (00:44→20:24)
[2018-10-17 04:00] VITALS: BP 112/75
[2018-10-17] MEDS: BLOOD SUGAR DIAGNOSTIC STRIP TEST SCH ×4 (05:40→21:54)
[2018-10-17 08:00] VITALS: BP 132/53
[2018-10-17 08:15] LABS: BASOPHILS % 0.5 % (0.0-2.0); EOSINOPHILS % 1.6 % (0.0-5.0); HEMATOCRIT. 35.2 % (36.0-48.0); HEMOGLOBIN. 11.6 g/dL (12.0-16.0); LYMPHOCYTES % 54.1 % (20.0-50.0); MEAN CORPUSCULAR HEMOGLOBIN 25.4 pg (28.0-32.0); MEAN PLATELET VOLUME 9.1 fl (7.4-10.4); MONOCYTES % 7.5 % (2.0-8.0); NEUTROPHILS % 36.3 % (40.0-76.0); PLATELET 167 x1000/uL (130-400); RED BLOOD CELL COUNT 4.57 mill/uL (4.2-5.4); RED CELL DISTRIBUTION WIDTH 16.4 % (11.6-14.6)
[2018-10-17] MEDS: INSULIN LISPRO 100 UNITS/ML SUBCUT SCH ×7 (08:29→21:00)
[2018-10-17] MEDS: METHYLPREDNISOLONE SOD SUCC 40 MG/ML VIAL IV SCH (08:30)
[2018-10-17] MEDS: GLIPIZIDE 10MG TABLET PO SCH ×2 (08:30→17:14)
[2018-10-17] MEDS: METFORMIN HCL 500MG TABLET PO SCH ×2 (08:30→17:14)
[2018-10-17 08:39] LABS: CHLORIDE 99 mEq/L (98-107)
[2018-10-17] MEDS: MORPHINE SULFATE 10MG/5ML ORAL SOLN UDC PO PRN ×2 (09:28→20:21)
[2018-10-17] MEDS: INSULIN GLARGINE UD 100 UNITS/ML SYR SUBCUT SCH ×2 (09:29→21:55)
[2018-10-17] MEDS: BUDESONIDE 0.5MG/2ML NEB HHN SCH ×2 (10:35→20:24)
[2018-10-17 12:00] VITALS: BP 128/49
[2018-10-17 16:00] VITALS: BP 135/63
[2018-10-17] MEDS: MONTELUKAST SODIUM 10MG TABLET PO SCH (17:14)
[2018-10-17 20:00] VITALS: BP 124/75
[2018-10-17] MEDS: QUETIAPINE FUMARATE 100MG TABLET PO SCH (21:19)
[2018-10-18] MEDS: IPRATROPIUM/ALBUTEROL 0.5-3(2.5)MG/3ML NEB HHN SCH ×6 (00:18→17:23)
[2018-10-18 04:00] VITALS: BP 117/75
[2018-10-18 07:15] LABS: BASOPHILS % 0.5 % (0.0-2.0); EOSINOPHILS % 1.2 % (0.0-5.0); HEMATOCRIT. 36.8 % (36.0-48.0); HEMOGLOBIN. 11.9 g/dL (12.0-16.0); LYMPHOCYTES % 51.8 % (20.0-50.0); MEAN CORPUSCULAR VOLUME 77.3 fL (81.0-99.0); MEAN PLATELET VOLUME 8.3 fl (7.4-10.4); MONOCYTES % 7.3 % (2.0-8.0); NEUTROPHILS % 39.2 % (40.0-76.0); PLATELET 172 x1000/uL (130-400); RED BLOOD CELL COUNT 4.76 mill/uL (4.2-5.4); RED CELL DISTRIBUTION WIDTH 16.7 % (11.6-14.6)
[2018-10-18 07:40] LABS: CHLORIDE 103 mEq/L (98-107)
[2018-10-18 08:00] VITALS: BP 110/73
[2018-10-18] MEDS: METFORMIN HCL 500MG TABLET PO SCH ×2 (08:27→17:40)
[2018-10-18] MEDS: GLIPIZIDE 10MG TABLET PO SCH ×2 (08:27→16:55)
[2018-10-18] MEDS: METHYLPREDNISOLONE SOD SUCC 40 MG/ML VIAL IV SCH (08:28)
[2018-10-18] MEDS: INSULIN LISPRO 100 UNITS/ML SUBCUT SCH ×6 (08:29→17:40)
[2018-10-18] MEDS: BUDESONIDE 0.5MG/2ML NEB HHN SCH (09:13)
[2018-10-18] MEDS: INSULIN GLARGINE UD 100 UNITS/ML SYR SUBCUT SCH (10:00)
[2018-10-18 12:00] VITALS: BP 134/81
[2018-10-18] MEDS: BLOOD SUGAR DIAGNOSTIC STRIP TEST SCH ×2 (12:04→16:55)
[2018-10-18] MEDS: MORPHINE SULFATE 10MG/5ML ORAL SOLN UDC PO PRN (13:46)
[2018-10-18 16:00] VITALS: BP 127/77
[2018-10-18] MEDS: MONTELUKAST SODIUM 10MG TABLET PO SCH (16:55)
[2018-10-18 17:21] VITALS: BP 127/77
== END 2018-10-18 18:00 | disposition home health service (06) | DRG 816 ==
LOC: ER 19:12 → EDBEDREQTM 23:06 → EDBEDREQ 23:06 → 8WST 23:09 → ENRESERV 10-15 07:04
PROVIDERS: ADMIT Internal Medicine; ATTEND Internal Medicine
DX: T40.5X1A Poisoning by cocaine, accidental (unintentional), initial encounter (principal); J96.00 Acute respiratory failure, unspecified whether with hypoxia or hypercapnia; D72.1 Eosinophilia; E44.1 Mild protein-calorie malnutrition; E11.65 Type 2 diabetes mellitus with hyperglycemia; E87.1 Hypo-osmolality and hyponatremia; E87.8 Other disorders of electrolyte and fluid balance, not elsewhere classified; J68.0 Bronchitis and pneumonitis due to chemicals, gases, fumes and vapors; J44.1 Chronic obstructive pulmonary disease with (acute) exacerbation; E66.9 Obesity, unspecified; E78.5 Hyperlipidemia, unspecified; F12.90 Cannabis use, unspecified, uncomplicated; F14.10 Cocaine abuse, uncomplicated; F17.200 Nicotine dependence, unspecified, uncomplicated; M19.90 Unspecified osteoarthritis, unspecified site; Z80.1 Family history of malignant neoplasm of trachea, bronchus and lung; Z83.3 Family history of diabetes mellitus; Y92.89 Other specified places as the place of occurrence of the external cause; Z79.51 Long term (current) use of inhaled steroids; Z79.84 Long term (current) use of oral hypoglycemic drugs; Z79.4 Long term (current) use of insulin; Z79.899 Other long term (current) drug therapy; Z68.39 Body mass index [BMI] 39.0-39.9, adult
CPT/HCPCS: 36415; 71045; 80048; 80305; 82962; 83605; 83880; 84484; 93005; 94640; 94644; 96365; 96375; 97162; 99285; C1893; J1815; J2405; J2920; J2930; J3475; J7611; J7620; J7626

== ENCOUNTER 2018-10-26 21:50 | Emergency (ER) | payer MEDICAID ==
[~2018-10-26] VITALS: Ht 170.2 cm; Wt 100.0 kg
[~2018-10-26 21:50] MED LIST changes: -LANTUSUD SUBCUT; -MONT10TA21 PO; +S350 MT
[2018-10-26] MEDS ORDERED: ALBUTEROL (0.083%) 2.5MG/3ML NEB HHN STA (23:00)
[2018-10-26] MEDS ORDERED: PREDNISONE 20MG TABLET PO STA (23:00)
[2018-10-26] MEDS ORDERED: ONDANSETRON HCL 4MG/2ML INJ IV STA (23:00)
[2018-10-26] MEDS ORDERED: IPRATROPIUM BROMIDE (0.02%) 0.5MG/2.5ML NEB HHN STA (23:00)
[2018-10-26] MEDS ORDERED: KETOROLAC 30MG/ML VIAL IV STA (23:00)
[2018-10-27 00:04] LABS: EOSINOPHILS % 0.9 % (0.0-5.0); HEMATOCRIT. 38.5 % (36.0-48.0); HEMOGLOBIN. 12.5 g/dL (12.0-16.0); LYMPHOCYTES % 37.5 % (20.0-50.0); MEAN CORPUSCULAR HEMOGLOBIN 25.2 pg (28.0-32.0); MEAN CORPUSCULAR VOLUME 77.7 fL (81.0-99.0); MEAN PLATELET VOLUME 8.6 fl (7.4-10.4); MONOCYTES % 10.4 % (2.0-8.0); NEUTROPHILS % 50.2 % (40.0-76.0); PLATELET 200 x1000/uL (130-400); RED BLOOD CELL COUNT 4.96 mill/uL (4.2-5.4); RED CELL DISTRIBUTION WIDTH 17.1 % (11.6-14.6)
[2018-10-27 00:11] LABS: CHLORIDE 97 mEq/L (98-107)
[2018-10-27] MEDS ORDERED: INSULIN REGULAR (HUMULIN R) 300UNITS/3ML SUBCUT NR (00:30)
[2018-10-27 03:29] VITALS: BP 107/77
== END 2018-10-27 03:32 | disposition home or self-care (01) ==
LOC: ER 21:50
DX: J44.1 Chronic obstructive pulmonary disease with (acute) exacerbation (principal); E11.9 Type 2 diabetes mellitus without complications; Z87.891 Personal history of nicotine dependence; Z79.4 Long term (current) use of insulin; Z79.899 Other long term (current) drug therapy
CPT/HCPCS: 36415; 71045; 80053; 82962; 83880; 84484; 85025; 93005; 94640; 96372; 96374; 96375; 99284; J1815; J1885; J2405; J7512; J7611

== ENCOUNTER 2018-11-10 11:33 | Emergency (ER) | payer MEDICAID ==
[~2018-11-10] VITALS: Ht 167.6 cm; Wt 86.0 kg
[2018-11-10] MEDS ORDERED: SODIUM CHLORIDE 0.9% 1,000 ML IV ONE (12:00)
[2018-11-10 12:30] LABS: BASOPHILS % 1.1 % (0.0-2.0); EOSINOPHILS % 2.2 % (0.0-5.0); HEMATOCRIT. 41.6 % (36.0-48.0); HEMOGLOBIN. 13.5 g/dL (12.0-16.0); LYMPHOCYTES % 33.2 % (20.0-50.0); MEAN CORPUSCULAR VOLUME 77.1 fL (81.0-99.0); MEAN PLATELET VOLUME 9.5 fl (7.4-10.4); MONOCYTES % 7.1 % (2.0-8.0); NEUTROPHILS % 56.4 % (40.0-76.0); PLATELET 201 x1000/uL (130-400); RED BLOOD CELL COUNT 5.39 mill/uL (4.2-5.4); RED CELL DISTRIBUTION WIDTH 16.6 % (11.6-14.6)
[2018-11-10 12:36] LABS: CHLORIDE 96 mEq/L (98-107)
[2018-11-10] MEDS ORDERED: FLUCONAZOLE 100MG TABLET PO ONE (15:00)
[2018-11-10] MEDS ORDERED: HYDROXYZINE 25MG TABLET PO ONE (15:00)
[2018-11-10] MEDS ORDERED: INSULIN LISPRO 100 UNITS/ML SUBCUT ONE (15:50)
[2018-11-10 18:30] VITALS: BP 105/72
== END 2018-11-10 18:33 | disposition home or self-care (01) ==
LOC: ER 12:02
DX: E11.65 Type 2 diabetes mellitus with hyperglycemia (principal); J06.9 Acute upper respiratory infection, unspecified; R35.0 Frequency of micturition; F41.9 Anxiety disorder, unspecified; M19.90 Unspecified osteoarthritis, unspecified site; J44.9 Chronic obstructive pulmonary disease, unspecified; E11.9 Type 2 diabetes mellitus without complications; Z87.891 Personal history of nicotine dependence; Z79.84 Long term (current) use of oral hypoglycemic drugs; Z79.4 Long term (current) use of insulin; Z79.899 Other long term (current) drug therapy
CPT/HCPCS: 36415; 71045; 80053; 82962; 83880; 84484; 85025; 93005; 96360; 96361; 96372; 99284; J1815; J7030

== ENCOUNTER 2019-01-10 13:04 | Emergency (ER) | payer MEDICAID | END 2019-01-10 20:03 | disposition left against medical advice (07) | LOC: ER 13:04 | DX: R05 Cough (principal); Z53.21 Procedure and treatment not carried out due to patient leaving prior to being seen by health care provider ==

== ENCOUNTER 2019-03-23 11:42 | Inpatient (IN) | payer MEDICAID ==
[~2019-03-23] VITALS: Ht 157.5 cm; Wt 94.4 kg
[2019-03-23] MEDS ORDERED: ALBUTEROL (0.083%) 2.5MG/3ML NEB HHN STA (12:11)
[2019-03-23] MEDS ORDERED: METHYLPREDNISOLONE SOD SUCC 125 MG/2 ML VIAL IV STA (12:11)
[2019-03-23] MEDS ORDERED: IPRATROPIUM BROMIDE (0.02%) 0.5MG/2.5ML NEB HHN STA (12:11)
[2019-03-23] MEDS ORDERED: MAGNESIUM 2 G PREMIX 50 ML IV ONE (12:15)
[2019-03-23 12:29] LABS: BASOPHILS % 1.2 % (0.0-2.0); EOSINOPHILS % 3.8 % (0.0-5.0); HEMATOCRIT. 41.6 % (36.0-48.0); HEMOGLOBIN. 13.6 g/dL (12.0-16.0); LYMPHOCYTES % 44.6 % (20.0-50.0); MEAN CORPUSCULAR HEMOGLOBIN 24.5 pg (28.0-32.0); MEAN CORPUSCULAR VOLUME 75.3 fL (81.0-99.0); MEAN PLATELET VOLUME 8.7 fl (7.4-10.4); MONOCYTES % 10.3 % (2.0-8.0); NEUTROPHILS % 40.1 % (40.0-76.0); PLATELET 149 x1000/uL (130-400); RED BLOOD CELL COUNT 5.53 mill/uL (4.2-5.4); RED CELL DISTRIBUTION WIDTH 16.8 % (11.6-14.6)
[2019-03-23] MEDS ORDERED: ALBUTEROL (0.5%) 2.5MG/0.5ML NEB HHN ONE (12:29)
[2019-03-23] MEDS ORDERED: IPRATROPIUM BROMIDE (0.02%) 0.5MG/2.5ML NEB ONE (12:30)
[2019-03-23] MEDS ORDERED: ALBUTEROL (0.083%) 2.5MG/3ML NEB ONE (12:30)
[2019-03-23 12:35] LABS: CHLORIDE 98 mEq/L (98-107)
[2019-03-23] MEDS ORDERED: INSULIN REGULAR (HUMULIN R) 300UNITS/3ML SUBCUT ONE (13:30)
[2019-03-23] MEDS ORDERED: SODIUM CHLORIDE 0.9% 1,000 ML IV ONE (13:30)
[2019-03-23] MEDS ORDERED: INSULIN REGULAR (HUMULIN R) 300UNITS/3ML SUBCUT SCH (15:45)
[2019-03-23 16:00] VITALS: BP 135/70
[2019-03-23] MEDS ORDERED: IPRATROPIUM/ALBUTEROL 0.5-3(2.5)MG/3ML NEB HHN PRN (16:15)
[2019-03-23] MEDS ORDERED: DEXTROSE 50% WATER 50ML SYRINGE IV PRN (16:15)
[2019-03-23] MEDS ORDERED: GUAIFENESIN-DM 200MG-20MG/10ML UDC PO PRN (16:15)
[2019-03-23] MEDS ORDERED: ONDANSETRON HCL 4MG/2ML INJ IV PRN (16:15)
[2019-03-23] MEDS ORDERED: BUDESONIDE 0.5MG/2ML NEB HHN SCH (16:15)
[2019-03-23] MEDS ORDERED: ACETAMINOPHEN 325MG TABLET PO PRN (16:15)
[2019-03-23 17:00] VITALS: BP 138/79
[2019-03-23] MEDS ORDERED: INSULIN LISPRO 100 UNITS/ML SUBCUT SCH (17:43)
[2019-03-23] MEDS: BLOOD SUGAR DIAGNOSTIC STRIP TEST SCH ×2 (18:00→21:36)
[2019-03-23] MEDS: MONTELUKAST SODIUM 10MG TABLET PO SCH (18:07)
[2019-03-23] MEDS: AZITHROMYCIN 500 MG TABLET PO SCH (19:00)
[2019-03-23] MEDS: INSULIN LISPRO 100 UNITS/ML SUBCUT SCH ×3 (19:01→21:22)
[2019-03-23 20:00] VITALS: BP 111/65
[2019-03-23] MEDS ORDERED: GLIP5TAB12 MT (20:23)
[2019-03-23] MEDS: FAMOTIDINE 20MG/2ML VIAL IV SCH (21:33)
[2019-03-23] MEDS: LORATADINE 10MG TABLET PO SCH (21:33)
[2019-03-23] MEDS: FLUTICASONE PROPIONATE 50MCG/SPRAY BOTTLE BOTHNSTRLS SCH (21:34)
[2019-03-23] MEDS: GUAIFENESIN 600MG ER TABLET PO SCH (21:34)
[2019-03-23] MEDS: ENOXAPARIN 40MG/0.4ML SYR SUBCUT SCH (21:35)
[2019-03-23] MEDS ORDERED: INSULIN GLARGINE UD 100 UNITS/ML SYR SUBCUT SCH (22:00)
[2019-03-23] MEDS: INSULIN GLARGINE UD 100 UNITS/ML SYR SUBCUT SCH (23:11)
[2019-03-24] VITALS: BP 127/69
[2019-03-24 04:00] VITALS: BP 108/60
[2019-03-24] MEDS: IPRATROPIUM/ALBUTEROL 0.5-3(2.5)MG/3ML NEB HHN SCH ×5 (04:21→21:15)
[2019-03-24] MEDS: INSULIN LISPRO 100 UNITS/ML SUBCUT SCH ×7 (05:58→21:00)
[2019-03-24] MEDS: BLOOD SUGAR DIAGNOSTIC STRIP TEST SCH ×4 (05:59→21:47)
[2019-03-24 06:11] LABS: BASOPHILS % 0.3 % (0.0-2.0); EOSINOPHILS % 0.2 % (0.0-5.0); HEMATOCRIT. 36.9 % (36.0-48.0); HEMOGLOBIN. 11.9 g/dL (12.0-16.0); LYMPHOCYTES % 27.2 % (20.0-50.0); MEAN CORPUSCULAR HEMOGLOBIN 23.8 pg (28.0-32.0); MEAN PLATELET VOLUME 8.9 fl (7.4-10.4); NEUTROPHILS % 64.3 % (40.0-76.0); PLATELET 98 x1000/uL (130-400); RED BLOOD CELL COUNT 4.98 mill/uL (4.2-5.4); RED CELL DISTRIBUTION WIDTH 16.8 % (11.6-14.6)
[2019-03-24 06:22] LABS: CHLORIDE 103 mEq/L (98-107)
[2019-03-24 08:00] VITALS: BP 98/63
[2019-03-24] MEDS: BUDESONIDE 0.5MG/2ML NEB HHN SCH ×2 (08:50→21:22)
[2019-03-24] MEDS: FLUTICASONE PROPIONATE 50MCG/SPRAY BOTTLE BOTHNSTRLS SCH ×2 (09:14→21:43)
[2019-03-24] MEDS: FAMOTIDINE 20MG/2ML VIAL IV SCH ×2 (09:14→21:43)
[2019-03-24] MEDS: INSULIN GLARGINE UD 100 UNITS/ML SYR SUBCUT SCH ×2 (09:16→21:47)
[2019-03-24] MEDS: GUAIFENESIN 600MG ER TABLET PO SCH ×2 (09:26→21:42)
[2019-03-24 12:00] VITALS: BP 109/66
[2019-03-24] MEDS: HYDROCODONE/ACETAMINOPHEN 5/325MG TABLET PO PRN (12:48)
[2019-03-24 16:16] VITALS: BP 113/62
[2019-03-24] MEDS: MONTELUKAST SODIUM 10MG TABLET PO SCH (18:11)
[2019-03-24] MEDS: AZITHROMYCIN 500 MG TABLET PO SCH (18:11)
[2019-03-24 20:00] VITALS: BP 99/67
[2019-03-24] MEDS: ENOXAPARIN 40MG/0.4ML SYR SUBCUT SCH (21:43)
[2019-03-24] MEDS: LORATADINE 10MG TABLET PO SCH (21:43)
[2019-03-24 23:09] LABS: CLARITY URINE CLEAR (CLEAR); COLOR URINE YELLOW (YELLOW); KETONES URINE TRACE (NEGATIVE); LEUKOCYTE ESTERASE URINE NEGATIVE (NEGATIVE); NITRITE URINE NEGATIVE (NEGATIVE); OCCULT BLOOD URINE NEGATIVE (NEGATIVE); PROTEIN URINE NEGATIVE (NEGATIVE); SPECIFIC GRAVITY URINE 1.026 (1.005-1.030); UROBILINOGEN URINE 0.2 E.U./dL (0.2-1.0)
[2019-03-24 23:19] LABS: *AMPHETAMINES SCREEN URINE NEGATIVE (NEGATIVE); CANNABINOID URINE SCREEN NEGATIVE (NEGATIVE); PHENCYCLIDINE URINE SCREEN NEGATIVE (NEGATIVE)
[2019-03-24 23:20] LABS: *BARBITURATES SCREEN URINE NEGATIVE (NEGATIVE); *BENZODIAZEPINES SCREEN URINE NEGATIVE (NEGATIVE); *COCAINE SCREEN URINE PRESUMTIVE POSITIVE (NEGATIVE); METHADONE URINE SCREEN NEGATIVE (NEGATIVE); OPIATES URINE SCREEN PRESUMTIVE POSITIVE (NEGATIVE)
[2019-03-25] VITALS: BP 117/78
[2019-03-25] MEDS: IPRATROPIUM/ALBUTEROL 0.5-3(2.5)MG/3ML NEB HHN SCH ×4 (00:21→12:49)
[2019-03-25] MEDS: HYDROCODONE/ACETAMINOPHEN 5/325MG TABLET PO PRN ×2 (00:42→12:35)
[2019-03-25] MEDS ORDERED: FLUCONAZOLE 50MG TABLET PO ONE (02:30)
[2019-03-25] MEDS ORDERED: FLUCONAZOLE 150MG TABLET PO NR (03:00)
[2019-03-25] MEDS ORDERED: CLOTRIMAZOLE 1% VAGINAL CREAM 45GM VG SCH (03:00)
[2019-03-25 04:00] VITALS: BP 120/80
[2019-03-25] MEDS: INSULIN LISPRO 100 UNITS/ML SUBCUT SCH ×4 (06:44→13:09)
[2019-03-25] MEDS: BLOOD SUGAR DIAGNOSTIC STRIP TEST SCH ×2 (06:47→12:07)
[2019-03-25 08:00] VITALS: BP 98/51
[2019-03-25] MEDS: BUDESONIDE 0.5MG/2ML NEB HHN SCH (08:45)
[2019-03-25] MEDS: GUAIFENESIN 600MG ER TABLET PO SCH (09:27)
[2019-03-25] MEDS: FAMOTIDINE 20MG/2ML VIAL IV SCH (09:27)
[2019-03-25] MEDS: FLUTICASONE PROPIONATE 50MCG/SPRAY BOTTLE BOTHNSTRLS SCH (09:27)
[2019-03-25] MEDS: INSULIN GLARGINE UD 100 UNITS/ML SYR SUBCUT SCH (09:50)
[2019-03-25 12:36] VITALS: BP 108/57
[2019-03-25 13:27] VITALS: BP 108/57
[2019-03-25] MEDS ORDERED: ENOXAPARIN 30MG/0.3ML SYR SUBCUT SCH (21:00)
== END 2019-03-25 15:55 | disposition home or self-care (01) | DRG 133 ==
LOC: ER 11:42 → 8WST 14:05 → EDBEDREQTM 14:08 → EDBEDREQ 14:08 → ENRESERV 14:25
PROVIDERS: ADMIT Internal Medicine; ATTEND Internal Medicine
DX: J96.00 Acute respiratory failure, unspecified whether with hypoxia or hypercapnia (principal); E11.10 Type 2 diabetes mellitus with ketoacidosis without coma; E87.1 Hypo-osmolality and hyponatremia; E44.1 Mild protein-calorie malnutrition; J44.1 Chronic obstructive pulmonary disease with (acute) exacerbation; M94.0 Chondrocostal junction syndrome [Tietze]; E66.9 Obesity, unspecified; E78.5 Hyperlipidemia, unspecified; F14.10 Cocaine abuse, uncomplicated; F41.9 Anxiety disorder, unspecified; M19.90 Unspecified osteoarthritis, unspecified site; Z79.4 Long term (current) use of insulin; Z71.3 Dietary counseling and surveillance; Z68.38 Body mass index [BMI] 38.0-38.9, adult
CPT/HCPCS: 36415; 71045; 80048; 80305; 82010; 82962; 83036; 83880; 84484; 93005; 94640; 96374; 97162; 99285; J1650; J1815; J2930; J3475; J3490; J7030; J7611; J7620; J7626

== ENCOUNTER 2019-04-19 19:06 | Emergency (ER) | payer MEDICAID ==
[~2019-04-19] VITALS: Ht 157.5 cm; Wt 95.0 kg
[2019-04-19] MEDS ORDERED: KETOROLAC 30MG/ML VIAL IV STA (19:29)
[2019-04-19] MEDS ORDERED: SODIUM CHLORIDE 0.9% 500 ML IV ONE (19:30)
[2019-04-19 19:47] LABS: BASOPHILS % 1.2 % (0.0-2.0); HEMATOCRIT. 42.8 % (36.0-48.0); HEMOGLOBIN. 13.9 g/dL (12.0-16.0); LYMPHOCYTES % 43.8 % (20.0-50.0); MEAN CORPUSCULAR HEMOGLOBIN 24.1 pg (28.0-32.0); MEAN CORPUSCULAR VOLUME 74.5 fL (81.0-99.0); MEAN PLATELET VOLUME 8.8 fl (7.4-10.4); MONOCYTES % 6.3 % (2.0-8.0); NEUTROPHILS % 43.7 % (40.0-76.0); PLATELET 167 x1000/uL (130-400); RED BLOOD CELL COUNT 5.75 mill/uL (4.2-5.4); RED CELL DISTRIBUTION WIDTH 17.9 % (11.6-14.6)
[2019-04-19 19:53] LABS: CHLORIDE 99 mEq/L (98-107)
[2019-04-19] MEDS ORDERED: INSULIN LISPRO 100 UNITS/ML SUBCUT NR (20:15)
[2019-04-19] MEDS ORDERED: SODIUM CHLORIDE 0.9% 1,000 ML IV SCH (20:15)
[2019-04-19] MEDS ORDERED: MAGNESIUM/ALUMINUM HYDROXIDE/SIMETHICONE 30ML UDC PO ONE (21:30)
[2019-04-19] MEDS ORDERED: VISCOUS LIDOCAINE 2% 15 ML UDC PO ONE (21:30)
[2019-04-19 22:48] VITALS: BP 128/77
== END 2019-04-19 23:01 | disposition home or self-care (01) ==
LOC: ER 19:06
DX: J44.1 Chronic obstructive pulmonary disease with (acute) exacerbation (principal); E11.65 Type 2 diabetes mellitus with hyperglycemia; F41.9 Anxiety disorder, unspecified; M19.90 Unspecified osteoarthritis, unspecified site; Z79.84 Long term (current) use of oral hypoglycemic drugs
CPT/HCPCS: 36415; 71045; 80053; 82962; 83880; 84484; 85025; 93005; 96361; 96372; 96374; 99284; J1815; J1885; J7040